=== PATIENT | male | born 1990 | race Caucasian/White ===

== ENCOUNTER 2018-03-10 21:00 | Emergency (ER) | payer BC, OTHER ==
[2018-03-10] MEDS ORDERED: ONDANSETRON 4 MG/2 ML VIAL ONE (21:16)
[2018-03-10] MEDS ORDERED: ONDANSETRON 4 MG/2 ML VIAL IVP ONE (21:19)
[2018-03-10] MEDS ORDERED: NS 1,000 ML IV ONE ×2 (21:23→22:22)
[2018-03-10] MEDS ORDERED: PROMETHAZINE HCL 25 MG/ML INJ IVP ONE (21:34)
--- NOTE | 2018-03-10 21:35 | EDPHY ---
H & P Stated Complaint: N/V/D starting this evening, pt actively vomiting Time Seen by Provider: 03/10/18 21:34 HPI/ROS: HPI: This is a 27-year-old male who presents with Chief Complaint: N/V/D starting this evening, pt actively vomiting Location: GI Quality: Nausea, vomiting, diarrhea Duration: Started around 6:30 p.m. Signs and Symptoms: no fever, + nausea, + vomiting, no hematemesis, no blood in stool, no abdominal bloating, no diarrhea, no back pain, no urinary symptoms, no testicular/groin pain, no indigestion, no chest pain, no shortness of breath Timing: Acute, intermittent episodes Severity: Moderate Context: Patient is a student records coordinator at [employer] presents with sudden onset of nausea, vomiting several times and several loose stools around 6:30 p.m. Approximately 4 hr prior to arrival. Friday patient and his friends had a democrat that included she has that was left out as well as a pie that had uncooked egg in it. Patient reports that he may have food poisoning. None of his roommates are sick. Denies recent antibiotic use, foreign travel, contaminated well water exposure. Patient denies any actual abdominal pain. Modifying Factors: None Comment: ROS: A comprehensive 10 system review of systems is otherwise negative aside from elements mentioned in the history of present illness. MEDICAL/SURGICAL/SOCIAL HISTORY: Medical history: beta thalassemia trait, back pain. Surgical history: Denies Social history: Never smoked. Family history noncontributory. CONSTITUTIONAL: Uncomfortable but nontoxic-appearing young adult white male, awake and alert, no obvious distress HEENT: Atraumatic and normocephalic, PERRL, EOMI. Nares patent; no rhinorrhea; no nasal mucosal edema. Tympanic membranes clear. Oropharynx clear, no exudate and moist pink mucosa. Airway patent. No lymphadenopathy. No meningismus. Cardiovascular: Normal S1/S2, mild tachycardia, regular rhythm, without murmur rub or gallop. PULMONARY/CHEST: Symmetrical and nontender. Clear to auscultation bilaterally. Good air movement. No accessory muscle usage. ABDOMEN: Soft, nondistended, nontender, no rebound, no guarding, no peritoneal signs, no masses or organomegaly. No CVAT. EXTREMITIES: 2/2 pulses, strength 5/5, no deformities, no clubbing, no cyanosis or edema. NEUROLOGICAL: no focal neuro deficits. GCS 15. SKIN: Warm and dry, no erythema. no rash. Good capillary refill. Source: Patient Exam Limitations: No limitations - Personal History Current Tetanus/Diphtheria Vaccine: Yes Current Tetanus Diphtheria and Acellular Pertussis (TDAP): Yes - Medical/Surgical History Hx Asthma: No Hx Chronic Respiratory Disease: No Hx Diabetes: No Hx Cardiac Disease: No Hx Renal Disease: No Hx Cirrhosis: No Hx Alcoholism: No Hx HIV/AIDS: No Hx Splenectomy or Spleen Trauma: No Other PMH: beta thalassemia trait, back pain. - Social History Smoking Status: Never smoked Constitutional: Initial Vital Signs Temperature (C) 36.8 C 03/10/18 21:11 Heart Rate 102 H 03/10/18 21:11 Respiratory Rate 18 03/10/18 21:11 Blood Pressure 142/96 H 03/10/18 21:11 O2 Sat (%) 98 03/10/18 21:11 O2 Delivery Mode Room Air Allergies/Adverse Reactions: No Known Allergies Allergy (Unverified 03/10/18 21:10) Home Medications: Medication Instructions Recorded Ondansetron Odt [Zofran Odt 4 mg 4 mg PO Q4 PRN #12 tab 03/10/18 (*)] Medical Decision Making ED Course/Re-evaluation: Vital signs reviewed and show mild tachycardia. IV access and laboratory studies ordered Given 2 L normal saline and IV Zofran 4 mg and IV promethazine 12.5 mg 2339: Patient has had no episodes of vomiting or diarrhea while in the emergency room the last 3 hr. Drinking apple juice without difficulty. Abdomen remains soft and nontender. Doubt surgical process or need for imaging. Patient will be discharged home with a prepack of Phenergan and prescription for Zofran This patient was seen under the supervision of my secondary supervising physician. I evaluated care for this patient independently. Discussed this patient with Dr. Otto who did not see the patient. Differential Diagnosis: Differential diagnosis includes but is not limited to gastroenteritis, gastritis , diverticulitis, appendicitis, viral syndrome, cholecystitis. - Data Points Laboratory Results: Laboratory Results 03/10/18 21:20 03/10/18 21:20 03/10/18 03/10/18 03/10/18 21:20 21:20 21:20 WBC 9.82 10^3/uL H 10^3/uL (3.80-9.50) RBC 7.77 10^6/uL H 10^6/uL (4.40-6.38) Hgb 14.7 g/dL g/dL (13.7-17.5) Hct 46.4 % % (40.0-51.0) MCV 59.7 fL L fL (81.5-99.8) MCH 18.9 pg L pg (27.9-34.1) MCHC 31.7 g/dL L g/dL (32.4-36.7) RDW 17.7 % H % (11.5-15.2) Plt Count 173 10^3/uL 10^3/uL (150-400) MPV TNP Neut % (Auto) REVIEW MANAGER Lymph % (Auto) REVIEW MANAGER [place] % (Auto) REVIEW MANAGER Eos % (Auto) REVIEW MANAGER Baso % (Auto) REVIEW MANAGER Nucleat RBC Rel Count REVIEW MANAGER Absolute Neuts (auto) REVIEW MANAGER Absolute Lymphs (auto) REVIEW MANAGER Absolute Monos (auto) REVIEW MANAGER Absolute Eos (auto) REVIEW MANAGER Absolute Basos (auto) REVIEW MANAGER Absolute Nucleated RBC REVIEW MANAGER Immature Gran % REVIEW MANAGER Seg Neutrophils % 83.0 % % Band Neutrophils % 8.0 % % Lymphocytes % 4.0 % % Monocytes % 5.0 % % Eosinophils % 0.0 % % Basophils % 0.0 % % Metamyelocytes % 0.0 % % Myelocytes % 0.0 % % Promyelocytes % 0.0 % % Blast Cells % 0.0 % % Immature Gran # REVIEW MANAGER Absolute Seg Neuts 8.15 10^3/uL H 10^3/uL (1.70-6.50) Absolute Band Neuts 0.79 10^3/uL H 10^3/uL (0.00-0.70) Absolute Lymphocytes 0.39 10^3/uL L 10^3/uL (1.00-3.00) Absolute Monocytes 0.49 10^3/uL 10^3/uL (0.30-0.80) Absolute Eosinophils 0.00 10^3/uL L 10^3/uL (0.03-0.40) Absolute Basophils 0.00 10^3/uL L 10^3/uL (0.02-0.10) Absolute Metamyelocyte 0.00 10^3/mL 10^3/mL (0.00-0.00) Absolute Myelocytes 0.00 10^3/mL 10^3/mL (0.00-0.00) Absolute Promyelocytes 0.00 10^3/uL 10^3/uL (0.00-0.00) Absolute Plasma Cells 0.00 10^3/uL 10^3/uL (0.00-0.00) Absolute Blast Cells 0.00 10^3/uL 10^3/uL (0.00-0.00) Plasma Cells % 0.0 % % Platelet Estimate ADEQUATE (ADEQ) Microcytic Cells 1+ H Smear Review By Pending Sodium 139 mEq/L mEq/L (135-145) Potassium 3.9 mEq/L mEq/L (3.5-5.2) Chloride 104 mEq/L mEq/L (97-110) Carbon Dioxide 21 mEq/l L mEq/l (22-31) Anion Gap 14 mEq/L mEq/L (6-14) BUN 19 mg/dL mg/dL (7-23) Creatinine 1.0 mg/dL mg/dL (0.7-1.3) Estimated GFR > 60 Glucose 111 mg/dL H mg/dL (70-100) Calcium 9.9 mg/dL mg/dL (8.5-10.4) Total Bilirubin 1.8 mg/dL H mg/dL (0.1-1.4) Conjugated Bilirubin 0.5 mg/dL mg/dL (0.0-0.5) Unconjugated Bilirubin 1.3 mg/dL H mg/dL (0.0-1.1) AST 27 IU/L IU/L (17-59) ALT 24 IU/L IU/L (21-72) Alkaline Phosphatase 92 IU/L IU/L (38-126) Total Protein 8.1 g/dL g/dL (6.3-8.2) Albumin 5.0 g/dL g/dL (3.5-5.0) Lipase 84 IU/L IU/L (23-300) Medications Given: Discontinued Medications Sodium Chloride (Ns) 1,000 mls @ 0 mls/hr IV ONCE ONE PRN Reason: Wide Open Stop: 03/10/18 21:24 Last Admin: 03/10/18 21:24 Dose: 1,000 mls Sodium Chloride (Ns) 1,000 mls @ 0 mls/hr IV EDNOW ONE; Wide Open PRN Reason: Protocol Stop: 03/10/18 22:23 Last Admin: 03/10/18 22:30 Dose: 1,000 mls Ondansetron HCl (Zofran) 4 mg IVP EDNOW ONE Stop: 03/10/18 21:20 Last Admin: 03/10/18 21:20 Dose: 4 mg Promethazine HCl (Phenergan) 12.5 mg IVP ONCE ONE Stop: 03/10/18 21:35 Last Admin: 03/10/18 21:53 Dose: 12.5 mg Departure - Departure Disposition: Home, Routine, Self-Care Clinical Impression: Gastroenteritis Condition: Good Instructions: Gastroenteritis (ED) Additional Instructions: Consume a minimum of 8-10 glasses of water or electrolyte fluid replacement drinks that include Gatorade, Powerade, Pedialyte. Eat a bland diet for the next 48 hours and then slowly advance as tolerated. Take Zofran 1 tab every 4 hours as needed for nausea, vomiting. Return to the Emergency Room if symptoms do not resolve in the next 72 hours, you spike a fever > 102 F, or experience intractable abdominal pain/nausea/ vomiting. Referrals: [facility],. [Clinic] - As per Instructions Prescriptions: Ondansetron Odt [Zofran Odt 4 mg (*)] 4 mg PO Q4 PRN #12 tab PRN Reason: Nausea/Vomiting, Use 1st
[2018-03-10 21:38] LABS: PLATELET COUNT 173 10^3/uL (150-400)
[2018-03-10] MEDS ORDERED: PROMETHAZINE 25 MG PREPACK #4 BTL TAKEHOME ONE (23:39)
[2018-03-11 00:14] VITALS: BP 121/81
== END 2018-03-11 00:15 | disposition home or self-care (01) ==
DX: K52.9 Noninfective gastroenteritis and colitis, unspecified (principal); E86.9 Volume depletion, unspecified
CPT/HCPCS: 96374; J2405; J2550